=== PATIENT | male | born 1955 | race Caucasian/White ===

== ENCOUNTER → 2017-06-16 | Outpatient (CLI) | payer OTHER ==
[~2017-06-16] VITALS: Ht 167.6 cm; Wt 94.3 kg
[~2017-06-16] MED LIST: ADULT LOW DOSE81 MG PO; ASPIRIN EC81 M1 PO; CARDIZEM CD180 MG PO; DICLOFENAC SODI75 MG PO; DILTIAZEM PO; FLECAINIDE ACET50 M1 PO; LISINOPRIL-HCT1 EAC1 PO; LISINOPRIL10 MG PO; LISINOPRIL5 MG PO; MINIPRIN81 MG PO; MOBIC15 MG PO; NAPROSYN500 MG PO; NORCO 5-325 TA1 EACH PO; SIMVASTATIN10 MG PO; SIMVASTATIN20 MG; ULTRAM 50MG TAB50 MG PO; VALIUM5 MG PO; ZOCOR 10 MG TAB10 M1 PO
--- NOTE | ~2017-06-16 | HPC ---
[facility] [address] [place] [address] PAIN MANAGEMENT CONSULTATION Name: DANIEL RADER Room #: REG CL M.R.#: [id number] Admission: 06/16/17 Attend Phys: Clay Jarquin DO Discharge: Date of : 55 Report #: [id number] THIS REPORT FOR: //name// CC: Clay Patricia DO DATE OF SERVICE: 06/16/2017 REFERRING PHYSICIAN: Josh Patricia DO. CHIEF COMPLAINT: Low back pain, left lower extremity pain and paresthesias. HISTORY OF PRESENT ILLNESS: As you know, the patient is a 62-year-old male who returns today in followup visit with recurrent lumbar radicular symptoms. He returns today in followup visit requesting to undergo the next in a series of epidural injections. He places current pain score at 4 to 5/10. He states his pain is aching and burning in sensation, exacerbated with lying down and improves with repositioning, medications and previous epidural injections. The patient reports 80% improvement in overall pain in his low back pain, lower extremity paresthesias with the epidural injection provided at our last visit. He returns today in followup visit, denying new injury or new trauma that may have led to recurrence of pain. He is requesting epidural injection in hopes of building success of previous intervention. ALLERGIES: No known drug allergies. CURRENT MEDICATIONS: Diclofenac 75 mg twice a day, lisinopril and hydrochlorothiazide 20/12.5 mg once a day, diltiazem 160 mg per day, simvastatin 10 mg per day, 50 mg twice a day, diazepam 5 mg p.o. at bedtime and tramadol 50 mg 1-2 tabs every 8 hours p.r.n. for pain. SOCIAL HISTORY: The patient denies tobacco, IV or illicit drug use. Admits to approximately 3 alcoholic beverages per week. He is unaccompanied today. IMAGING: No new imaging available. PHYSICAL EXAMINATION: VITAL SIGNS: Blood pressure 148/98, pulse 75 and respiratory rate 15 and unlabored. The patient is 98% on room air. Height 5 feet 6 inches tall, weight 208 pounds, BMI calculated at 33.6. GENERAL: Well-developed, well-nourished, well-hydrated exogenously obese 62-year-old male appearing stated age, placing current pain score at around 4 to 5 over 10. HEENT: Normocephalic, atraumatic. Pupils equal, round and reactive to light. Extraocular muscles are intact. [address] [address] PAIN MANAGEMENT CONSULTATION Name: DANIEL RADER Room #: REG [facility].#: [id number] Admission: 06/16/17 Attend Phys: Clay Jarquin DO Discharge: Date of : 55 Report #: [id number] EXTREMITIES: Show no clubbing, no cyanosis, no edema. MUSCULOSKELETAL: Seated straight leg raising negative. Supine straight leg raising positive on the left. Donald test is negative. Modified Gaenslen's positive for axial low back pain. Ankle clonus negative. Babinski is negative. The patient has normal tactile sensation over the distal distribution of all the dermatomes in the lower extremities. There are symptoms that correlate to an L5 radiculopathy on the left. Lumbar provocation testing including extension, rotation and lateral flexion all intensify axial back pain. ASSESSMENT: 1. Symptomatic lumbar radiculopathy. 2. Displacement of lumbar intervertebral disk with radiculopathy. 3. Lumbosacral spondylosis with radiculopathy. 4. Lumbar degeneration. 5. Chronic intractable pain. PLAN: 1. The patient returns today in followup visit requesting to undergo next in the series of epidural injections under fluoroscopic guidance. As you are aware, the patient received excellent benefit with previous epidural injection, reporting 80% improvement in overall pain lasting for months. He returns today in followup visit requesting next in the series of epidural injections in hopes of building on success of previous intervention. The patient was advised of the risks and benefits of the procedure. These risks include but are not necessarily limited to bleeding, bruising, infection, worsening pain, no relief of pain, also risk of temporary or permanent muscle weakness, temporary or permanent nerve damage, possible paralysis and . The patient states he understood and wished to proceed. 2. The patient was provided a prescription of Lyrica. He was given this in sample form. He will begin with the 75 mg dose at night. Continue for 7 nights, then double if necessary to control neuropathic pain. He was given samples to titrate as directed. 3. We will see the patient back in followup visit in 30 days. At that time, review of the efficacy of today's epidural injection and determine if next in a series would be warranted. PROCEDURE NOTE PROCEDURE: L5-S1 left paramedian epidural steroid injection under fluoroscopic guidance. This is the first procedure of the second series that the patient is undergoing. After obtaining written consent, the patient was taken back to the fluoroscopy suite, placed in a prone position with pillow under the abdomen to decrease lumbar lordosis. The skin overlying the lumbosacral area was then prepped and [address] [address] PAIN MANAGEMENT CONSULTATION Name: DANIEL RADER Room #: REG CLTraci Whyte#: [id number] Admission: 06/16/17 Attend Phys: Clay Jarquin DO Discharge: Date of : 55 Report #: [id number] draped in aseptic fashion. The L5-S1 vertebral interspace was then identified by AP fluoroscopy. The skin and subcutaneous tissue overlying the target site of injection was anesthetized with 3 mL 1% lidocaine. A 20-gauge 3.5-inch Tuohy needle was then advanced under fluoroscopic guidance towards the epidural space using a left paramedian approach. The epidural space was identified using loss of resistance to air technique. After negative aspiration for heme or cerebrospinal fluid, a total of 1 mL of Omnipaque was injected. A lumbar epidurogram was confirmed using both AP and lateral fluoroscopy. After negative aspiration for heme or cerebrospinal fluid, 5 mL of a solution containing 2 mL 40 mg per mL, 80 mg total triamcinolone, 3 mL of lidocaine 1% was injected in increments. Contrast spread was noted in the posterior epidural space. The needle was then retracted approximately half way and needle tract flushed with 1 mL of 1% lidocaine. Needle was then removed. There were no apparent sensory or motor deficits in the lower extremity following the procedure. A sterile bandage was placed over the injection site. The heart rate, pulse, oximetry and blood pressure were continuously monitored after the procedure. There were no apparent complications. The patient tolerated the procedure well and was carefully escorted to the recovery room in stable condition. There were no apparent complications. After meeting discharge criteria, the patient was then discharged home. <ELECTRONICALLY SIGNED> By: Clay Jarquin DO 06/26/17 0705 1226 1400 Clay Jarquin DO /nt
[2017-06-16 13:43] VITALS: BP 148/98
== END | disposition home or self-care (01) ==
LOC: PAIN 07:09
DX: M51.16 Intervertebral disc disorders with radiculopathy, lumbar region (principal); M47.27 Other spondylosis with radiculopathy, lumbosacral region; M51.36 Other intervertebral disc degeneration, lumbar region; G89.29 Other chronic pain; Z79.899 Other long term (current) drug therapy

== ENCOUNTER 2017-07-08 09:35 | Observation (INO) | payer OTHER ==
[~2017-07-08] VITALS: Ht 152.4 cm; Wt 92.5 kg
--- NOTE | ~2017-07-08 | EKG ---
[place] [address] [address] [employer] [facility] [place] [address] ELECTROCARDIOGRAM REPORT Name: DANIEL RADER Room #: 316-P [facility] M.R.#: [id number] Admission: 07/08/17 Attend Phys: Griffin Joshua MD Discharge: Date of : 55 Report #: [id number] THIS REPORT FOR: //name// ED Test Date: 2017-07-08 Test Time: 09:38:43 Pat Name: DANIEL RADER Department: Room: [facility] Gender: M Hospitality Intern: BRANDIN : 1955 Requested By: Kirill Reeves Order Number: [id number] MD: Jose Scott Measurements Intervals [place] Rate: 76 P: 10 CT: 173 QRS: -63 QRSD: 94 T: 23 QT: 380 QTc: 428 Interpretive Statements Sinus rhythm Inferior infarct, old Baseline wander in lead(s) V1 Compared to ECG 06/05/2016 08:28:09 No significant changes Electronically Signed On 07-09-2017 8:54:57 CDT by Jose Scott [email or web address] <ELECTRONICALLY SIGNED> By: Jose Scott MD, [facility] 07/09/17 0854 0938 0938 Jose Scott MD, [facility] /EPI
--- NOTE | ~2017-07-08 | EXE ---
[facility] [place] [address] STRESS ECHOCARDIOGRAM Name: DANIEL RADER ALEJANDRA Room #: 316-P [facility]M IN M.R.#: [id number] Admission: 07/08/17 Attend Phys: Anam Oconnor Discharge: Date of : 55 Date of Service: 07/09/17 1138 Report #: [id number] THIS REPORT FOR: //name// APPROVED REPORT Exam: Stress Echocardiogram Indication: Chest pain , Dyspnea Patient Location: Echo lab Stress Nurse: June Perez RN Room #: 313 Ht: 5 ft 6 in HR: 88 bpm BP: 126/88 mmHg Medical History Medical History: Atrial Fibrillation, HTN, Hyperlipidemia, Smoking Cardiac Risk Factors: Smoking, HTN, Hyperlipidemia Procedure The patient underwent an Exercise Stress Test using the Cameron Protocol. Blood pressure, heart rate, and EKG were monitored. An Echocardiogram was performed by breeder hen service technician in four stages in quad fashion. At peak stress, four selected images were obtained and placed side by side with resting images for comparison. Stress Test Details Stress Test: Exercise stress testing was performed using a Cameron protocol. HR Resting HR: 88 bpm Max Heart Rate (APMHR): 158 bpm Max HR Achieved: 155 bpm Target HR (85% APMHR): 134 bpm % of APMHR: 98 Recovery HR: 96 bpm HR response to stress: Normal HR response to stress BP Resting BP: 126/88 mmHg Max BP: 190/82 mmHg Recovery BP: 150/82 mmHg ECG Resting ECG: Sinus Rhythm Stress ECG: Sinus Rhythm ST Change: Normal [facility] [address] [place] [address] STRESS ECHOCARDIOGRAM Name: DANIEL RADER Room #: 316-P [facility] [place] ..#: [id number] Admission: 07/08/17 Attend Phys: Anam Oconnor Discharge: Date of : 55 Date of Service: 07/09/17 1138 Report #: [id number] Maximum ST Deviation: 0 mm Recovery ECG: Sinus Rhythm Recovery ST Change: Normal Recovery ST Deviation: 0 mm Clinical Reason for Termination: Maximal effort Exercise duration: 10 min 04 sec Highest Stage Achieved: Stage 4: 4.2 mph at 16% grade. Exercise capacity: 13.6 METs Overall Exercise Capacity for Age: Good Angina Score: None Stress ECG Conclusion ECG: Non-ischemic Clinical: Non-ischemic Vickers Treadmill Score is 10.0 which is Low risk. Pre-Stress Echo The resting Echocardiogram showed normal left ventricular contractility with an estimated Ejection Fraction of about 55%. Post-Stress Echo The stress Echocardiogram showed normal left ventricular contractility with an estimated Ejection Fraction of about 70%. Clinical Normal augmentation of myocardial wall segments using a 17 segment model. Conclusion Clinical Response: Non-ischemic Exercise Capacity: Average Stress ECG Response: Non-ischemic Stress Echo Images: Non-ischemic Normal stress echocardiogram with maximal exercise stress. Other Information Study Quality: Good <Conclusion> Normal stress echocardiogram with maximal exercise stress. <ELECTRONICALLY SIGNED> By: Jose Scott MD, FACC 07/09/17 1138 1138 1138 Jose Scott MD, FACC /INF
[2017-07-08 09:37] VITALS: BP 137/79
[2017-07-08 10:23] LABS: ABSOLUTE NEUTROPHILS 6.9 thou/uL (1.4-8.2); BASOPHILS 0.3 % (0.0-2.0); HEMATOCRIT 46.8 % (42.0-52.0); HEMOGLOBIN 16.4 gm/dL (14.0-18.0); LYMPHOCYTES 17.7 % (24.0-44.0); MCH 30.8 pg (26.0-34.0); MONOCYTES 6.6 % (1.0-8.0); PLATELET COUNT 178 thou/uL (150-400); POLYS 72.4 % (36.0-66.0); RBC 5.31 mil/uL (4.50-6.00); RDW 14.4 % (10.5-14.5); WBC 9.5 thou/uL (4.0-11.0)
[2017-07-08 10:27] LABS: MANUAL DIFF NO
[2017-07-08 10:32] LABS: ANION GAP 12 mmol/L (7-16); BUN 24 mg/dL (7-18); CALCIUM 9.7 mg/dL (8.5-10.1); CHLORIDE 101 mmol/L (98-107); CO2 26 mmol/L (21-32); CREATININE 1.3 mg/dL (0.7-1.3); GLUCOSE 142 mg/dL (74-106); POTASSIUM 4.4 mmol/L (3.5-5.1); SODIUM 139 mmol/L (136-145)
[2017-07-08 10:42] LABS: NT-PRO BRAIN NAT PEPTIDE 51 pg/mL (<300); TROPONIN-I < 0.04 ng/mL (<0.04-0.07)
[2017-07-08 11:14] VITALS: BP 121/67
[2017-07-08 11:58] VITALS: BP 110/63
[2017-07-08 12:37] VITALS: BP 115/71
[2017-07-08 16:06] LABS: CHOLESTEROL 158 mg/dL (<200); HDL CHOLESTEROL 58 mg/dL (>40); LDL CHOLESTEROL 82 mg/dL (<100); TC:HDL 2.7 Ratio (Not establshd); TRIGLYCERIDE 90 mg/dL (<150); VLDL 18 mg/dL (<40)
[2017-07-08 16:39] VITALS: BP 111/74
[2017-07-08 21:20] VITALS: BP 122/80
[2017-07-09 00:30] VITALS: BP 119/76
[2017-07-09 05:35] VITALS: BP 120/91
[2017-07-09 09:45] VITALS: BP 124/89
[2017-07-09] MEDS ORDERED: DILTIAZEM PO (13:05)
[2017-07-09 13:24] VITALS: BP 124/89
[2017-07-09 13:37] VITALS: BP 124/89
[2017-07-09 13:38] VITALS: BP 124/89
== END 2017-07-09 15:11 | disposition home or self-care (01) ==
LOC: ER 09:35 → EROBS 11:10 → 3N 11:10
PROVIDERS: Emergency Medicine; Nurse Practitioner Gerontology
DX: R07.89 Other chest pain (principal); I48.0 Paroxysmal atrial fibrillation; I10 Essential (primary) hypertension; E78.5 Hyperlipidemia, unspecified; F17.210 Nicotine dependence, cigarettes, uncomplicated; F19.90 Other psychoactive substance use, unspecified, uncomplicated; Z72.89 Other problems related to lifestyle
CPT/HCPCS: 23017; 23031

== ENCOUNTER → 2017-10-27 | Outpatient (CLI) | payer OTHER ==
[~2017-10-27] VITALS: Ht 167.6 cm; Wt 95.3 kg
[~2017-10-27] MED LIST changes: +LYRICA 75 MG CA75 MG PO; +ZANAFLEX4 MG PO
--- NOTE | ~2017-10-27 | HPC ---
[facility] [address] [address] PAIN MANAGEMENT CONSULTATION Name: DANIEL RADER ROBERTS Room #: REG [facility] M..#: [id number] Admission: 10/27/17 Attend Phys: Clay Jarquin DO Discharge: Date of : 55 Report #: [id number] THIS REPORT FOR: //name// CC: CHRISTINE Patricia DO DATE OF SERVICE: 10/27/2017 REFERRING PHYSICIAN: Josh Patricia DO CHIEF COMPLAINT: Low back pain, left lower extremity pain with paresthesias, intermittent right lower extremity pain. HISTORY OF PRESENT ILLNESS: As you know, the patient is a 62-year-old male who began experiencing low back pain, left lower extremity pain on 07/24/2014. He has been followed by [facility] for lumbar radicular symptoms. He is now reporting not only left lower extremity pain, but now right lower extremity pain for which he describes the pain as aching and burning, places current pain score at 8-9/10, exacerbated with standing, improves with sitting and lying down. He has undergone epidural injections under fluoroscopic guidance with our services with good efficacy. He reports up to 75% improvement in overall pain with previous injection. He returns today in followup visit requesting to undergo the next in a series of epidural injections under fluoroscopic guidance to address ongoing and recurrent pain issues. The patient indicates that he had recurrence of symptoms 24 hours after playing a fairly aggressive tennis game. He does not report a specific injury during the game, but indicates that 24 hours after he was unable to move. ALLERGIES: No known drug allergies. CURRENT MEDICATIONS: Diclofenac, lisinopril, hydrochlorothiazide, diltiazem, simvastatin, diazepam, tramadol, and Lyrica. SOCIAL HISTORY: The patient denies tobacco, IV or illicit drug use, admits to approximately 3 alcoholic beverages per week. He is accompanied by his , present in room today. IMAGING: No new imaging available. PHYSICAL EXAMINATION: VITAL SIGNS: Blood pressure 130/80, pulse 83, respiratory rate 15 and unlabored, the patient is 95% on room air, height 5 feet 6 inches tall, weight 210 pounds, and BMI calculated 33.9. GENERAL: Well-developed, well-nourished, well-hydrated, exogenously obese 62-year-old male, appearing stated age, placing current pain score 8-9/10[place] [address] PAIN MANAGEMENT CONSULTATION Name: DANIEL RADER ROBERTS Room #: REG CLI [facility]#: [id number] Admission: 10/27/17 Attend Phys: Clay Jarquin DO Discharge: Date of : 55 Report #: [id number] HEENT: Normocephalic, atraumatic. Pupils are equal, round, and reactive to light. Extraocular muscles are intact. Sclerae are nonicteric without injection. EXTREMITIES: Show no clubbing, no cyanosis, and no edema. MUSCULOSKELETAL: Seated straight leg raising negative. Supine straight leg raising is actually positive on the left at about 45 degrees, mildly positive on the right at 60 degrees. Donald's test negative. Modified Gaenslen's positive for axial low back pain. Ankle clonus negative. Babinski is negative. He appears to be intact to light touch from L1 through S2 dermatomes. The symptoms appear to be correlated to an L5 radiculopathy on the left and mild L5 radiculopathy on the right. ASSESSMENT: 1. Symptomatic lumbar radiculopathy. 2. Displacement of lumbar intervertebral disk with radiculopathy. 3. Lumbosacral spondylosis with radiculopathy. 4. Lumbar degeneration. 5. Chronic intractable pain. PLAN: 1. The patient returns today in followup visit indicating good efficacy with previous epidural injection noticing about 75 to up to 90% improvement in overall pain with the epidural injection provided at our last visit. He states he was in his normal state of health when he participated in a fairly active tennis game recently, 24 hours later, he began experiencing recurrent lumbar radicular symptoms mainly left with mild right symptomology. He returns today requesting to undergo epidural injection in hopes of improving pain similar to what we saw with original injection. The patient was advised that third green party payer restrictions require the authorization be obtained, he states he understood. He will await the authorization to move forward with next in a series of epidural injections to address lumbar radicular symptoms. 2. The patient was provided samples of Lyrica 75 mg dose 1-2 tabs p.o. daily, I have given the patient #28 tablets of samples, which will provide him with 14 days of b.i.d. medication. If this medication is effective and his pain is well controlled, we would consider a full prescription if necessary. 3. We also discussed with the patient today possible other treatment options including a spinal cord stimulator therapy and surgical options, at this time he wishes to delay surgical treatments in hopes of improving pain with epidural injections. He wishes to remain as conservative as possible with treatment until which time his pain is improved. If the patient does not see improvement with injection at our next visit, he is considering surgical options. 4. We will see the patient back in followup visit once we have achieved authorization for the patient to undergo epidural injection. We will begin the [facility] [address] [place] [address] PAIN MANAGEMENT CONSULTATION Name: DANIEL RADER Room #: REG JOSE L L[facility]ua#: [id number] Admission: 10/27/17 Attend Phys: Clay Jarquin DO Discharge: Date of : 55 Report #: [id number] authorization process immediately and possibly have the patient back as early as tomorrow. By: [id number] Clay Jarquin DO /nt
[2017-10-27 09:00] VITALS: BP 130/80
== END ==
LOC: PAIN 06:53
DX: M51.16 Intervertebral disc disorders with radiculopathy, lumbar region (principal); M47.27 Other spondylosis with radiculopathy, lumbosacral region; R20.0 Anesthesia of skin; G89.29 Other chronic pain

== ENCOUNTER → 2017-11-04 | Outpatient (CLI) | payer OTHER ==
[~2017-11-04] VITALS: Ht 167.6 cm; Wt 93.8 kg
--- NOTE | ~2017-11-04 | HPC ---
[facility] [address] [address] PAIN MANAGEMENT CONSULTATION Name: DANIEL RADER Room #: REG [facility] M..#: [id number] Admission: 11/04/17 Attend Phys: Clay Jarquin DO Discharge: Date of : 55 Report #: [id number] THIS REPORT FOR: //name// CC: CHRISTINE Patricia DO DATE OF SERVICE: 11/04/2017 REFERRING PHYSICIAN: Josh Patricia D.O. CHIEF COMPLAINT: Low back pain, left lower extremity pain and paresthesias. HISTORY OF PRESENT ILLNESS: As you know, the patient is a 62-year-old male with longstanding history of low back pain, left lower extremity pain and paresthesias. The patient indicates the pain began on 07/24/2014. He describes the pain as chronic describes that the symptoms as burning, aching, spasming and dull. Places current pain score 6-7/10, exacerbated with standing, walking, improves with medications, seated position and epidural injections. He returns today in followup visit per the request of his primary care physician to undergo in the series of epidural injections in hopes of improving his pain reported at 6-7/10. He has denied any injury or trauma to his low back or lower extremities that may have led to symptom development. As you are aware, the patient received excellent benefit in the past with epidural injections up to 75% improvement. ALLERGIES: No known drug allergies. CURRENT MEDICATIONS: Pregabalin, diltiazem, tizanidine, diclofenac, lisinopril, hydrochlorothiazide, flecainide, simvastatin and tramadol. SOCIAL HISTORY: The patient denies tobacco, IV or illicit drug use. Admits to approximately 3 alcoholic beverages per week. He is accompanied by his present in room today. IMAGING DATA: No new imaging available. PHYSICAL EXAMINATION: VITAL SIGNS: Blood pressure 124/80, pulse 77, respiratory rate 16 and unlabored. The patient is 97% on room air. Height 5 feet 6 inches tall, weight 206.8 pounds and BMI calculated 33.4. GENERAL: Well-developed, well-nourished, well-hydrated 62-year-old male appearing stated age, placing current pain score 6-7/10. HEENT: Normocephalic and atraumatic. Pupils equal, round and reactive to light. EXTREMITIES: Show no clubbing, no cyanosis and no edema. [facility] [address] [place] [address] PAIN MANAGEMENT CONSULTATION Name: DANIEL RADER ALEJANDRA [facility] [id number] Admission: 11/04/17 Attend Phys: Clay Jarquin DO Discharge: Date of : 55 Report #: [id number] MUSCULOSKELETAL: Seated straight leg raising negative. Supine straight leg raising remains positive on the left. Donald's test negative. Modified Gaenslen's positive for axial low back pain. Ankle clonus negative. Babinski is negative. ASSESSMENT: 1. Symptomatic lumbar radiculopathy. 2. Displacement of lumbar intervertebral disk with radiculopathy. 3. Lumbosacral spondylosis with radiculopathy. 4. Lumbar degeneration. 5. Chronic intractable pain. PLAN: 1. The patient returns today in followup visit requesting to undergo next in the series of epidural injections under fluoroscopic guidance. As you are aware, the patient receives good benefit with epidural injections. He returns today hoping to undergo the next in series today. We have advised the patient of the risks and benefits, states understood and wished to proceed. 2. No medication changes were made at today's visit. He has refills of his Lyrica at 75 mg dose twice a day. He will continue this medication as directed. He does not need refills at this point. 3. We will see the patient back in followup visit on an as needed basis for possible repeat epidural injection. PROCEDURE NOTE DESCRIPTION OF PROCEDURE: L5-S1 left paramedian epidural steroid injection under fluoroscopic guidance. This is the first procedure of the second series that the patient is undergoing. After obtaining written consent, the patient was taken back to the fluoroscopy suite, placed in a prone position with pillow under the abdomen to decrease lumbar lordosis. The skin overlying the lumbosacral area was then prepped and draped in aseptic fashion. The L5-S1 vertebral interspace was then identified by AP fluoroscopy. The skin and subcutaneous tissue overlying the target site of injection was anesthetized with 3 mL 1% lidocaine. A 20-guage 3-1/2 inch Tuohy needle was then advanced under fluoroscopic guidance towards the epidural space using a left paramedian approach. The epidural space was identified using loss of resistance to air technique. After negative aspiration for heme or cerebrospinal fluid, a total of 1 mL of Omnipaque was injected. A lumbar epidurogram was confirmed using both AP and lateral fluoroscopy. After negative aspiration for heme or cerebrospinal fluid, 5 mL of a solution containing 2 mL 40 mg per mL, 80 mg total triamcinolone, 3 mL lidocaine 1% was injected in increments. Contrast spread was noted posterior [address] [address] PAIN MANAGEMENT CONSULTATION Name: DANIEL RADER Room #: REG JOSE L Lantigua#: [id number] Admission: 11/04/17 Attend Phys: Clay Jarquin DO Discharge: Date of : 55 Report #: [id number] epidural space. The needle was then retracted approximately half way and needle tract flushed with 1 mL of 1% lidocaine. Needle was then removed. There were no apparent sensory or motor deficits in the lower extremity following the procedure. A sterile bandage was placed over the injection site. The heart rate, pulse, oximetry and blood pressure were continuously monitored after the procedure. There were no apparent complications. The patient tolerated the procedure well and was carefully escorted to the recovery room in stable condition. There were no apparent complications. After meeting discharge criteria, the patient was then discharged home. <ELECTRONICALLY SIGNED> By: Clay Jarquin DO 11/11/17 1219 1733 0030 Clay Jarquin DO /nt
[2017-11-04 10:24] VITALS: BP 124/80
== END | disposition home or self-care (01) ==
LOC: PAIN 07:14
DX: M51.16 Intervertebral disc disorders with radiculopathy, lumbar region (principal); M47.27 Other spondylosis with radiculopathy, lumbosacral region; G89.29 Other chronic pain; Z68.33 Body mass index [BMI] 33.0-33.9, adult; Z79.899 Other long term (current) drug therapy; F17.200 Nicotine dependence, unspecified, uncomplicated